=== PATIENT | male | born 1980 | race Caucasian/White ===

== ENCOUNTER 2017-05-02 19:07 | Emergency (ER) | payer MEDICAID ==
[~2017-05-02] VITALS: Ht 167.6 cm; Wt 82.7 kg
[2017-05-02 19:08] VITALS: BP 129/78
[2017-05-02] MEDS ORDERED: IBUPROFEN 200 MG TABLET PO ONE (19:30)
[2017-05-02] MEDS ORDERED: IBUPROFEN 200 MG TABLET ONE (19:46)
== END 2017-05-02 20:35 | disposition home or self-care (01) ==
LOC: ED 20:20
DX: S62.325A Displaced fracture of shaft of fourth metacarpal bone, left hand, initial encounter for closed fracture (principal); W22.09XA Striking against other stationary object, initial encounter; Y93.89 Activity, other specified; Y92.39 Other specified sports and athletic area as the place of occurrence of the external cause; Y99.8 Other external cause status
CPT/HCPCS: 29125

== ENCOUNTER → 2018-06-14 | Outpatient (CLI) | payer MEDICAID | END | disposition home or self-care (01) | LOC: CFH 13:43 | PROVIDERS: ATTEND Internal Medicine | DX: R06.02 Shortness of breath (principal); Q79.6 Ehlers-Danlos syndromes; R53.83 Other fatigue | CPT/HCPCS: 93306 ==

== ENCOUNTER 2019-02-03 09:30 | Emergency (ER) | payer SELFPAY ==
[~2019-02-03] VITALS: Ht 168.9 cm; Wt 90.4 kg
[2019-02-03 09:33] VITALS: BP 124/85
--- NOTE | 2019-02-03 09:51 | NUR ---
PT TO ROOM FROM LOBBY
== END 2019-02-03 12:27 | disposition home or self-care (01) ==
LOC: ED 11:14
DX: M54.12 Radiculopathy, cervical region (principal); M62.838 Other muscle spasm
CPT/HCPCS: 72050; 72125; 99284; J7512

== ENCOUNTER 2019-12-02 09:39 | Inpatient (IN) | payer MEDICAID ==
[~2019-12-02] VITALS: Ht 167.6 cm; Wt 82.5 kg
[2019-12-02] MEDS ORDERED: ASPIRIN 325 MG TABLET EC ONE (09:52)
[2019-12-02] MEDS ORDERED: MAALOX/HYOSCYAMINE/LIDOCAINE 45 ML BTL ONE (09:52)
[2019-12-02] MEDS ORDERED: ONDANSETRON ODT 4 MG ONE (09:52)
--- NOTE | 2019-12-02 09:55 | NUR ---
TASK RN: PT MEDICATED WITH 325MG ASA, GI COCKTAIL, AND 4MG ZOFRAN ODT PER MD ORDER. CONNECTED TO MONITOR. MD AT BEDSIDE.
[2019-12-02] MEDS ORDERED: ASPIRIN 325 MG TABLET PO STA (09:56)
[2019-12-02] MEDS ORDERED: CARV25TA12 PO (09:58)
[2019-12-02] MEDS ORDERED: AMIODARONE 150 MG in DEXTROSE 5% 100 ML IV ONE (10:00)
[2019-12-02] MEDS ORDERED: AMIODARONE 50 MG/ML, 3ML IVPush ONE (10:00)
--- NOTE | 2019-12-02 10:03 | NUR ---
TASK RN: PT ARRIVED THROUGH TRIAGE STATING HE HAS BEEN NAUSEAS FOR 4 DAYS AND CP STARTED THIS AM ONE HOUR BEFORE ARRIVAL. DESCRIBES BILATERAL ARM NUMBNESS THAT BEGAN AT THE SAME TIME. PT CONNECTED TO MONITOR. VSS. CAREER DEVELOPMENT COORDINATOR/TEACHER AND ER MD AT BEDSIDE NOW. 2 PIVS HAVE BEEN STARTED. LABS DRAWN.
[2019-12-02 10:15] LABS: BASOPHILS # (AUTO) 0.05 x10^3/uL (0-0.1); BASOPHILS % (AUTO) 1 % (0-1); EOSINOPHILS # (AUTO) 0.01 x10^3/uL (0-0.4); EOSINOPHILS % (AUTO) 0 % (1-7); LYMPHOCYTES # (AUTO) 1.45 x10^3/uL (1-3.4); LYMPHOCYTES % (AUTO) 18 % (22-44); MD NO; MEAN CORPUSCULAR HEMOGLOBIN 32.8 pg (27.5-34.5); MEAN CORPUSCULAR HGB CONC 34.3 g/dL (33.2-36.2); MEAN CORPUSCULAR VOLUME 95.7 fL (81-97); MEAN PLATELET VOLUME 9.5 fL (7.4-10.4); MONOCYTES # (AUTO) 0.39 x10^3/uL (0.2-0.8); MONOCYTES % (AUTO) 5 % (2-9); NEUTROPHILS # (AUTO) 5.99 x10^3/uL (1.8-6.8); NEUTROPHILS % (AUTO) 76 % (42-75); PLATELET COUNT 261 x10^3/uL (130-400); RED BLOOD COUNT 5.16 x10^6/uL (4.38-5.82); RED CELL DISTRIBUTION WIDTH 12.4 % (9.4-14.8)
[2019-12-02] MEDS ORDERED: FENTANYL PF 100 MCG/2ML ONE (10:15)
[2019-12-02] MEDS ORDERED: TICAGRELOR 90 MG TABLET ONE (10:15)
[2019-12-02] MEDS ORDERED: HEPARIN 1,000 UNITS/ML, 10ML ONE (10:15)
[2019-12-02] MEDS ORDERED: MIDAZOLAM 1 MG/ML, 5ML ONE (10:15)
[2019-12-02] MEDS ORDERED: VERAPAMIL 2.5 MG/ML, 2ML ONE (10:15)
[2019-12-02] MEDS ORDERED: LIDOCAINE 2%, 20ML ONE (10:15)
[2019-12-02] MEDS ORDERED: BIVALIRUDIN 250 MG ONE ×2 (10:15→10:16)
--- NOTE | 2019-12-02 10:15 | NUR ---
PT'S FRIEND: ZOHRA ROMO (" RON") - VERBAL PERMISSION FROM PT TO PROVIDE INFORMATION TO HIS FRIEND. PT NOT IN LOBBY; UNABLE TO NOTIFY ZOHRA OF PT'S ADMIT STATUS.
--- NOTE | 2019-12-02 10:15 | NUR ---
Rates CP 04/25. Amiodarone bolus infusing
[2019-12-02] MEDS ORDERED: ONDANSETRON 2MG/ML, 2ML ONE (10:19)
[2019-12-02 10:26] LABS: INTERNATIONAL NORMALIZED RATIO 1.03 (0.93-1.1); PROTHROMBIN TIME 10.9 Seconds (9.6-11.5)
[2019-12-02] MEDS ORDERED: ONDANSETRON 2MG/ML, 2ML IVPush ONE (10:30)
[2019-12-02] MEDS ORDERED: AMIODARONE 900 MG in DEXTROSE 5% 482 ML IV PRN (10:30)
[2019-12-02] MEDS ORDERED: FILTER 0.22 MICRON IV ONE (10:30)
--- NOTE | 2019-12-02 10:30 | NUR ---
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 CP 04/25, no further ectopy since amiodarone infusion started. Consent labeled & purple tracking sheet filled out. Pt's friend updated on status, belongings bagged & transported with pt to [employer] hear[employer] laborer. BS report to open hear[employer] furnace laborer nurse.
[2019-12-02 10:34] LABS: TROPONIN I < 0.015 ng/mL (0.000-0.045)
[2019-12-02] MEDS: SODIUM CHLORIDE 0.9% 1,000 ML IV SCH ×2 (11:16→14:11)
[2019-12-02] MEDS ORDERED: BIVALIRUDIN 250 MG in SODIUM CHLORIDE 0.9% 50 ML IV SCH (11:16)
[2019-12-02] MEDS ORDERED: CALCIUM CARBONATE 500 MG TAB.CHEW ONE (13:07)
[2019-12-02] MEDS: CALCIUM CARBONATE 500 MG TAB.CHEW PO PRN ×2 (13:10→19:46)
[2019-12-02 14:00] VITALS: BP 140/82
[2019-12-02] MEDS ORDERED: MAALOX/HYOSCYAMINE/LIDOCAINE 45 ML BTL PO ONE (14:30)
[2019-12-02] MEDS: PANTOPRAZOLE 20MG TABLET PO SCH ×2 (14:30→17:20)
[2019-12-02] MEDS ORDERED: MORPHINE SULFATE 4 MG/ML, 1ML ONE (14:50)
[2019-12-02] MEDS: morphine SULFATE 10 MG/ML, 1ML IVPush PRN ×2 (14:56→18:36)
[2019-12-02] MEDS ORDERED: BISACODYL 10 MG SUPP PR PRN (15:00)
[2019-12-02] MEDS ORDERED: ACETAMINOPHEN 325 MG TABLET PO PRN (15:00)
[2019-12-02] MEDS ORDERED: POLYETHYLENE GLYCOL 17 GM PACKET PO PRN (15:00)
[2019-12-02] MEDS ORDERED: DOCUSATE 100 MG CAPSULE PO PRN (15:00)
[2019-12-02] MEDS: PROMETHAZINE 25 MG/ML, 1ML IM PRN (15:39)
[2019-12-02 20:00] VITALS: BP 131/83
[2019-12-02] MEDS: TICAGRELOR 90 MG TABLET PO SCH (21:01)
[2019-12-02] MEDS ORDERED: LORazepam 1MG TABLET PO PRN ×4 (23:30)
[2019-12-02] MEDS ORDERED: LORazepam 0.5MG TABLET PO PRN (23:30)
[2019-12-02] MEDS ORDERED: LORazepam 2 MG/ML, 1ML IV PRN ×5 (23:30)
[2019-12-03 02:00] VITALS: BP 136/96
[2019-12-03 04:29] LABS: BASOPHILS # (AUTO) 0.03 x10^3/uL (0-0.1); BASOPHILS % (AUTO) 0 % (0-1); EOSINOPHILS % (AUTO) 1 % (1-7); LYMPHOCYTES # (AUTO) 2.01 x10^3/uL (1-3.4); LYMPHOCYTES % (AUTO) 22 % (22-44); MD NO; MEAN CORPUSCULAR HEMOGLOBIN 32.9 pg (27.5-34.5); MEAN CORPUSCULAR HGB CONC 34.4 g/dL (33.2-36.2); MEAN CORPUSCULAR VOLUME 95.8 fL (81-97); MEAN PLATELET VOLUME 9.3 fL (7.4-10.4); MONOCYTES # (AUTO) 0.74 x10^3/uL (0.2-0.8); MONOCYTES % (AUTO) 8 % (2-9); NEUTROPHILS # (AUTO) 6.37 x10^3/uL (1.8-6.8); NEUTROPHILS % (AUTO) 69 % (42-75); PLATELET COUNT 195 x10^3/uL (130-400); RED BLOOD COUNT 5.06 x10^6/uL (4.38-5.82); RED CELL DISTRIBUTION WIDTH 12.2 % (9.4-14.8)
[2019-12-03 04:36] LABS: ALANINE AMINOTRANSFERASE 62 U/L (12-78); ALBUMIN 3.4 g/dL (3.4-5.0); ANION GAP 8 mmol/L (5-15); CALCIUM 8.6 mg/dL (8.5-10.1); CHLORIDE 103 mmol/L (98-107); CREATININE 0.88 mg/dL (0.7-1.3)
[2019-12-03 04:45] LABS: ALKALINE PHOSPHATASE 77 U/L (45-117); BILIRUBIN,TOTAL 1.2 mg/dL (0.2-1.0); CHOL/HDL RATIO 2.9; CHOLESTEROL, TOTAL 178 mg/dL (140-239); HDL CHOL % 34 % (26-37); HDL CHOLESTEROL (DIRECT) 61 mg/dL (40-60); LDL CHOLESTEROL,CALCULATED 71 mg/dL (54-169); LDL/HDL RATIO 1.2 (0.5-3.0); TOTAL PROTEIN 6.9 g/dL (6.4-8.2); TRIGLYCERIDES 231 mg/dL (50-200); VLDL CHOLESTEROL 46 mg/dL (0-25)
[2019-12-03] MEDS: PROMETHAZINE 25 MG/ML, 1ML IM PRN (05:11)
[2019-12-03] MEDS: PANTOPRAZOLE 20MG TABLET PO SCH ×2 (05:11→16:37)
[2019-12-03] MEDS: TICAGRELOR 90 MG TABLET PO SCH ×2 (08:18→20:24)
[2019-12-03] MEDS: ASPIRIN 81 MG TABLET EC PO SCH (08:18)
[2019-12-03 10:55] VITALS: BP 110/72
[2019-12-03 10:56] VITALS: BP 109/72
[2019-12-03 10:57] VITALS: BP 110/78
[2019-12-03] MEDS: FENOFIBRATE 145 MG TABLET PO SCH (11:31)
[2019-12-03] MEDS: LISINOPRIL 5 MG TABLET PO SCH (11:32)
[2019-12-03 18:40] VITALS: BP 110/73
[2019-12-03] MEDS: CARVEDILOL 12.5 MG TABLET PO SCH (18:41)
[2019-12-03 20:15] VITALS: BP 112/77
[2019-12-04 03:55] VITALS: BP 100/68
[2019-12-04 05:12] LABS: BASOPHILS # (AUTO) 0.03 x10^3/uL (0-0.1); BASOPHILS % (AUTO) 0 % (0-1); EOSINOPHILS # (AUTO) 0.22 x10^3/uL (0-0.4); EOSINOPHILS % (AUTO) 2 % (1-7); LYMPHOCYTES # (AUTO) 2.01 x10^3/uL (1-3.4); LYMPHOCYTES % (AUTO) 21 % (22-44); MD NO; MEAN CORPUSCULAR HEMOGLOBIN 32.9 pg (27.5-34.5); MEAN CORPUSCULAR HGB CONC 34.2 g/dL (33.2-36.2); MEAN CORPUSCULAR VOLUME 96.2 fL (81-97); MEAN PLATELET VOLUME 9.6 fL (7.4-10.4); MONOCYTES # (AUTO) 0.71 x10^3/uL (0.2-0.8); MONOCYTES % (AUTO) 8 % (2-9); NEUTROPHILS # (AUTO) 6.39 x10^3/uL (1.8-6.8); NEUTROPHILS % (AUTO) 68 % (42-75); PLATELET COUNT 156 x10^3/uL (130-400); RED BLOOD COUNT 4.84 x10^6/uL (4.38-5.82); RED CELL DISTRIBUTION WIDTH 12.3 % (9.4-14.8)
[2019-12-04 05:28] LABS: ALBUMIN 3.1 g/dL (3.4-5.0); ANION GAP 7 mmol/L (5-15); CALCIUM 8.7 mg/dL (8.5-10.1); CHLORIDE 105 mmol/L (98-107)
[2019-12-04 05:35] LABS: ALANINE AMINOTRANSFERASE 50 U/L (12-78); ALKALINE PHOSPHATASE 67 U/L (45-117); BILIRUBIN,TOTAL 1.1 mg/dL (0.2-1.0); CREATININE 0.81 mg/dL (0.7-1.3); TOTAL PROTEIN 6.7 g/dL (6.4-8.2)
[2019-12-04 07:29] VITALS: BP 97/66
[2019-12-04] MEDS: FENOFIBRATE 145 MG TABLET PO SCH (08:41)
[2019-12-04] MEDS: TICAGRELOR 90 MG TABLET PO SCH ×2 (08:41→21:28)
[2019-12-04] MEDS: ASPIRIN 81 MG TABLET EC PO SCH (08:41)
[2019-12-04] MEDS: PANTOPRAZOLE 20MG TABLET PO SCH ×2 (08:41→15:53)
[2019-12-04] MEDS: CARVEDILOL 12.5 MG TABLET PO SCH ×3 (08:42→18:07)
[2019-12-04] MEDS: LISINOPRIL 5 MG TABLET PO SCH (08:42)
[2019-12-04 13:50] VITALS: BP 90/62
[2019-12-04 18:08] VITALS: BP 108/74
[2019-12-04 21:24] VITALS: BP 107/70
[2019-12-04] MEDS ORDERED: TRAZODONE 50MG TABLET PO ONE (22:00)
[2019-12-05 05:08] VITALS: BP 104/68
[2019-12-05] MEDS: PANTOPRAZOLE 20MG TABLET PO SCH (05:14)
[2019-12-05] MEDS: CARVEDILOL 12.5 MG TABLET PO SCH (05:15)
[2019-12-05 05:36] LABS: ANION GAP 8 mmol/L (5-15); CHLORIDE 106 mmol/L (98-107)
[2019-12-05 05:40] LABS: FREE T4 (FREE THYROXINE) 1.09 ng/dL (0.76-1.46)
[2019-12-05 05:41] LABS: BASOPHILS # (AUTO) 0.03 x10^3/uL (0-0.1); BASOPHILS % (AUTO) 0 % (0-1); EOSINOPHILS # (AUTO) 0.28 x10^3/uL (0-0.4); EOSINOPHILS % (AUTO) 3 % (1-7); LYMPHOCYTES # (AUTO) 1.83 x10^3/uL (1-3.4); LYMPHOCYTES % (AUTO) 20 % (22-44); MD NO; MEAN CORPUSCULAR HEMOGLOBIN 33.1 pg (27.5-34.5); MEAN CORPUSCULAR HGB CONC 34.3 g/dL (33.2-36.2); MEAN CORPUSCULAR VOLUME 96.7 fL (81-97); MEAN PLATELET VOLUME 9.5 fL (7.4-10.4); MONOCYTES # (AUTO) 0.71 x10^3/uL (0.2-0.8); MONOCYTES % (AUTO) 8 % (2-9); NEUTROPHILS # (AUTO) 6.56 x10^3/uL (1.8-6.8); NEUTROPHILS % (AUTO) 70 % (42-75); PLATELET COUNT 168 x10^3/uL (130-400); RED CELL DISTRIBUTION WIDTH 11.9 % (9.4-14.8)
[2019-12-05 07:30] VITALS: BP 98/66
[2019-12-05] MEDS: FENOFIBRATE 145 MG TABLET PO SCH (08:53)
[2019-12-05] MEDS: TICAGRELOR 90 MG TABLET PO SCH (08:53)
[2019-12-05] MEDS: ASPIRIN 81 MG TABLET EC PO SCH (08:53)
[2019-12-05] MEDS: LISINOPRIL 5 MG TABLET PO SCH (08:55)
[2019-12-05] MEDS ORDERED: CARV12.52 PO (12:52)
[2019-12-05] MEDS ORDERED: FENO145T30 PO (12:52)
[2019-12-05] MEDS ORDERED: TICA90TA PO (12:52)
[2019-12-05] MEDS ORDERED: ASPI81TA45 PO (12:52)
[2019-12-05] MEDS ORDERED: LISI5TAB7 PO (12:52)
== END 2019-12-05 14:53 | disposition home or self-care (01) | DRG 174 ==
LOC: ED 10:00 → SUATTDRO 12:36 → ICU 12:48 → 5SO 12-03 17:32 → ICU 12-03 17:35 → 5SO 12-03 18:08 → DCLOUNGE 12-05 14:24
PROVIDERS: ADMIT Internal Medicine; ATTEND Internal Medicine
PROC: 027034Z Dilation of Coronary Artery, One Artery with Drug-eluting Intraluminal Device, Percutaneous Approach (ICD-10-PCS; principal; 2019-12-02)
PROC: 4A023N7 Measurement of Cardiac Sampling and Pressure, Left Heart, Percutaneous Approach (ICD-10-PCS; 2019-12-02)
PROC: B215YZZ Fluoroscopy of Left Heart using Other Contrast (ICD-10-PCS; 2019-12-02)
PROC: B211YZZ Fluoroscopy of Multiple Coronary Arteries using Other Contrast (ICD-10-PCS; 2019-12-02)
DX: I21.29 ST elevation (STEMI) myocardial infarction involving other sites (principal); I49.01 Ventricular fibrillation; I11.0 Hypertensive heart disease with heart failure; I50.30 Unspecified diastolic (congestive) heart failure; I47.2 Ventricular tachycardia; E78.1 Pure hyperglyceridemia; I48.91 Unspecified atrial fibrillation; E78.5 Hyperlipidemia, unspecified; F10.239 Alcohol dependence with withdrawal, unspecified; Y90.9 Presence of alcohol in blood, level not specified; F12.90 Cannabis use, unspecified, uncomplicated; F17.200 Nicotine dependence, unspecified, uncomplicated; I25.10 Atherosclerotic heart disease of native coronary artery without angina pectoris; K21.9 Gastro-esophageal reflux disease without esophagitis; Z79.82 Long term (current) use of aspirin; Z79.899 Other long term (current) drug therapy; Z95.5 Presence of coronary angioplasty implant and graft
CPT/HCPCS: 36415; 71045; 80047; 80048; 80053; 80061; 83036; 83735; 84100; 84439; 84443; 84484; 85025; 85610; 85730; 87081; 93005; 93458; 96374; 99156; 99157; C1760; C1769; C1894; C8929; G0378; J0583; J1644; J2250; J2405; J2550; J3010; C1725; C1874; C1887; J0282; J2270; J7060; Q9967

== ENCOUNTER 2020-01-16 10:06 | Outpatient (CLI) | payer MEDICAID ==
[~2020-01-16 10:06] MED LIST: ASPI81TA45 PO; CARV12.52 PO; CARV25TA12 PO; FENO145T19 PO; LISI5TAB7 PO; TICA90TA PO
== END 2020-01-16 23:59 | disposition home or self-care (01) ==
LOC: CFH 10:06
PROVIDERS: ATTEND Internal Medicine Cardiovascular Disease
DX: I21.29 ST elevation (STEMI) myocardial infarction involving other sites (principal); I07.1 Rheumatic tricuspid insufficiency
CPT/HCPCS: 93306; 93356

== ENCOUNTER 2020-08-31 07:42 | Emergency (ER) | payer MEDICAID ==
[~2020-08-31] VITALS: Ht 167.6 cm; Wt 72.0 kg
[~2020-08-31 07:42] MED LIST changes: +ATOR10TA9 PO
[2020-08-31] MEDS ORDERED: ONDANSETRON 2MG/ML, 2ML ONE (08:23)
[2020-08-31] MEDS ORDERED: LORazepam 2 MG/ML, 1ML ONE (08:24)
[2020-08-31] MEDS ORDERED: ONDANSETRON 2MG/ML, 2ML IVPush ONE (08:30)
[2020-08-31] MEDS ORDERED: SODIUM CHLORIDE FLUSH 10ML SYR IVF ONE (08:30)
[2020-08-31] MEDS ORDERED: LORazepam 2 MG/ML, 1ML IVPush ONE (08:30)
[2020-08-31] MEDS ORDERED: THIAMINE 100 MG in SODIUM CHLORIDE 0.9% 50 ML IVPB ONE (08:30)
[2020-08-31] MEDS ORDERED: SODIUM CHLORIDE 0.9% 1,000ML IVBOLUS ONE (08:30)
--- NOTE | 2020-08-31 08:32 | NUR ---
PT WITH C/O TREMORS/CP STARTING THIS AM, PT WITH KNOWN ETOH ABUSE. PER PT LAST DRINK LAST NOC. PT DRINKS 3 PINTS VODKA PER DAY. PT WITH STABLE VS AT THIS TIME, PT TO ALL MONITORS, ERP IN TO EVAL PT, ORDERS RECIEVED. PIV INITIATED, PT MEDICATED PER JAN
[2020-08-31 08:39] LABS: ALBUMIN 4.2 g/dL (3.4-5.0); ANION GAP 11 mmol/L (5-15); CALCIUM 9.7 mg/dL (8.5-10.1); CHLORIDE 100 mmol/L (98-107)
[2020-08-31 08:42] LABS: ALANINE AMINOTRANSFERASE 32 U/L (12-78); ALKALINE PHOSPHATASE 57 U/L (45-117); BILIRUBIN,TOTAL 0.9 mg/dL (0.2-1.0); CREATININE 1.01 mg/dL (0.7-1.3); TOTAL PROTEIN 8.1 g/dL (6.4-8.2); TROPONIN I < 0.015 ng/mL (0.000-0.045)
[2020-08-31 09:05] LABS: BASOPHILS % (AUTO) 1 % (0-1); EOSINOPHILS % (AUTO) 1 % (1-7); LYMPHOCYTES % (AUTO) 11 % (22-44); MEAN CORPUSCULAR HEMOGLOBIN 33.3 pg (27.5-34.5); MEAN CORPUSCULAR HGB CONC 33.5 g/dL (33.2-36.2); MEAN PLATELET VOLUME 9.4 fL (7.4-10.4); MONOCYTES % (AUTO) 7 % (2-9); NEUTROPHILS % (AUTO) 80 % (42-75); PLATELET COUNT 180 x10^3/uL (130-400); RED BLOOD COUNT 4.57 x10^6/uL (4.38-5.82); RED CELL DISTRIBUTION WIDTH 13.8 % (9.4-14.8)
[2020-08-31 09:28] VITALS: BP 127/80
[2020-08-31 09:38] LABS: MD SCAN
== END 2020-08-31 11:09 | disposition home or self-care (01) ==
LOC: ED 08:42
DX: F10.120 Alcohol abuse with intoxication, uncomplicated (principal); I49.3 Ventricular premature depolarization; R11.2 Nausea with vomiting, unspecified; R25.1 Tremor, unspecified; I25.2 Old myocardial infarction; I25.10 Atherosclerotic heart disease of native coronary artery without angina pectoris; I50.9 Heart failure, unspecified; Y90.9 Presence of alcohol in blood, level not specified
CPT/HCPCS: 36415; 80053; 80307; 83735; 84484; 85025; 93005; 96361; 96365; 96375; 99284; J2060; J2405; J3411; J7030